=== PATIENT | male | born 1985 | race Caucasian/White ===

== ENCOUNTER 2016-09-22 19:35 | Inpatient (IN) | payer SELFPAY ==
[~2016-09-22] VITALS: Ht 180.3 cm; Wt 76.2 kg
[2016-09-22] MEDS ORDERED: PARO20TA24 PO (19:38)
[2016-09-22 20:10] LABS: BASOPHILS % (AUTO) 0.7 % (0.0-2.0); EOSINOPHILS % (AUTO) 0.5 % (1.0-6.0); HEMATOCRIT 47.8 % (41-53); HEMOGLOBIN 16.5 g/dL (13.5-17.5); LYMPHOCYTES # (AUTO) 1.7 K/uL (1.0-4.8); MEAN CORPUSCULAR HEMOGLOBIN 31.2 pg (26.0-34.0); MEAN CORPUSCULAR HGB CONC 34.5 G/dL (31.0-37.0); MEAN CORPUSCULAR VOLUME 90 fL (80-100); MONOCYTES # (AUTO) 0.5 K/uL (0.1-1.0); MONOCYTES % (AUTO) 5.3 % (2.0-9.0); NEUTROPHILS # (AUTO) 7.3 K/uL (1.8-7.7); NEUTROPHILS % (AUTO) 75.5 % (40.0-70.0); PLATELET COUNT (AUTO) 221 K/uL (150-450); RED BLOOD CELL COUNT(AUTO) 5.29 MIL/uL (4.50-5.90); RED CELL DISTRIBUTION WIDTH 12.9 % (11.5-14.5); WHITE BLOOD COUNT (AUTO) 9.7 K/uL (4.5-11.0)
[2016-09-22 20:35] LABS: ANION GAP 17 mmol/L (8-16); CALCIUM, TOTAL 8.9 mg/dL (8.8-10.5); CARBON DIOXIDE 22 mmol/L (22-29); CHLORIDE 105 mmol/L (98-107); CREATININE 0.88 mg/dL (0.60-1.30); GLOMERULAR FILTR. RATE CALC > 60 mL/min (>60); POTASSIUM 3.7 mmol/L (3.5-5.1); SODIUM SERUM 144 mmol/L (136-145); UREA NITROGEN, BLOOD 11 mg/dL (7-18)
[2016-09-22 20:43] LABS: ALANINE AMINOTRANSFERASE 38 U/L (12-78); ALBUMIN 4.5 g/dL (3.4-5.0); ASPARTATE AMINOTRANSFERASE 31 U/L (15-37); BILIRUBIN,TOTAL 0.4 mg/dL (0.1-1.0); TOTAL PROTEIN, SERUM 8.1 g/dL (6.4-8.2)
[2016-09-22] MEDS ORDERED: BUPIVACAINE HCL/PF 0.25% 30 ML VIAL INJ ONE (21:30)
[2016-09-22] MEDS ORDERED: PERTUSS(ACELL),DIPH,TET VAC/PF 0.5 ML VIAL IM ONE (21:30)
[2016-09-22] MEDS ORDERED: BACITRACIN 0.9 GM PACKET OINTMENT TP ONE (21:30)
[2016-09-22] MEDS ORDERED: HALOPERIDOL 5 MG TABLET PO PRN (21:30)
[2016-09-22] MEDS: ZOLPIDEM TARTRATE 10 MG TABLET PO PRN (21:37)
[2016-09-22] MEDS ORDERED: POVIDONE-IODINE 10% 15 ML SOLUTION UD TP ONE (22:30)
[2016-09-22] MEDS: LORazepam 2 MG TABLET PO PRN (23:29)
[2016-09-23 01:36] VITALS: BP 145/90
[2016-09-23] MEDS: LORazepam 2 MG TABLET PO PRN ×2 (06:50→15:33)
[2016-09-23 08:30] VITALS: BP 151/97
[2016-09-23] MEDS ORDERED: MAGNESIUM HYDROXIDE SUSPENSION 30 ML UDCUP PO PRN (08:30)
[2016-09-23] MEDS ORDERED: IBUPROFEN 600 MG TABLET PO PRN (08:30)
[2016-09-23] MEDS ORDERED: PETROLATUM,WHITE 71 GM JELLY TP PRN (08:30)
[2016-09-23] MEDS ORDERED: BENZOCAINE/MENTHOL LOZENGE MM PRN (08:30)
[2016-09-23] MEDS ORDERED: ONDANSETRON HCL 4 MG TABLET PO PRN (08:30)
[2016-09-23] MEDS ORDERED: ALBUTEROL SULFATE HFA 90 MCG/PUFF 8 GM INHALER IH PRN (08:30)
[2016-09-23] MEDS ORDERED: LOPERAMIDE HCL 2 MG CAPSULE PO PRN (08:30)
[2016-09-23] MEDS ORDERED: ACETAMINOPHEN 325 MG TABLET PO PRN (08:30)
[2016-09-23] MEDS ORDERED: MAG HYDROX/AL HYDROX/SIMETH ES 30 ML SUSPENSION UDCUP PO PRN (08:30)
[2016-09-23] MEDS ORDERED: CloNIDine HCL 0.1 MG TABLET PO PRN (08:30)
[2016-09-23] MEDS: PARoxetine HCL 20 MG TABLET PO SCH (09:48)
[2016-09-23] MEDS: FISH OIL/OMEGA-3 FATTY ACIDS 500 MG CAPSULE PO SCH (09:48)
[2016-09-23] MEDS: BACITRACIN 28.4 GM OINTMENT TP SCH ×2 (10:00→16:33)
[2016-09-23 19:34] VITALS: BP 136/91
[2016-09-23] MEDS: ZOLPIDEM TARTRATE 10 MG TABLET PO PRN (20:39)
[2016-09-23] MEDS: PRAZOSIN HCL 1 MG CAPSULE PO SCH (20:39)
[2016-09-24] MEDS: FISH OIL/OMEGA-3 FATTY ACIDS 500 MG CAPSULE PO SCH (08:26)
[2016-09-24] MEDS: LORazepam 2 MG TABLET PO PRN ×2 (08:26→16:16)
[2016-09-24] MEDS: PARoxetine HCL 20 MG TABLET PO SCH (08:27)
[2016-09-24] MEDS: BACITRACIN 28.4 GM OINTMENT TP SCH ×2 (08:27→16:16)
[2016-09-24 10:29] VITALS: BP 150/95
[2016-09-24] MEDS ORDERED: OMEG100033 PO (13:34)
[2016-09-24] MEDS ORDERED: PRAZ1 PO (13:34)
[2016-09-24 16:45] VITALS: BP 164/114
[2016-09-24 17:54] VITALS: BP 137/86
[2016-09-24] MEDS: PRAZOSIN HCL 1 MG CAPSULE PO SCH (20:05)
[2016-09-24] MEDS: ZOLPIDEM TARTRATE 10 MG TABLET PO PRN (21:05)
[2016-09-25 06:19] VITALS: BP 147/84
[2016-09-25] MEDS: PARoxetine HCL 20 MG TABLET PO SCH (08:46)
[2016-09-25] MEDS: FISH OIL/OMEGA-3 FATTY ACIDS 500 MG CAPSULE PO SCH (08:46)
[2016-09-25] MEDS: BACITRACIN 28.4 GM OINTMENT TP SCH (08:46)
== END 2016-09-25 14:00 | disposition home or self-care (01) | DRG 876 ==
LOC: EMS 19:36 → 3EC 23:15
PROC: 0XQ8XZZ Repair Right Upper Arm, External Approach (ICD-10-PCS; principal; 2016-09-22)
DX: F33.2 Major depressive disorder, recurrent severe without psychotic features (principal); R45.851 Suicidal ideations; F10.129 Alcohol abuse with intoxication, unspecified; S11.91XA Laceration without foreign body of unspecified part of neck, initial encounter; X78.9XXA Intentional self-harm by unspecified sharp object, initial encounter; S61.519A Laceration without foreign body of unspecified wrist, initial encounter; E78.5 Hyperlipidemia, unspecified; F12.90 Cannabis use, unspecified, uncomplicated; Y90.8 Blood alcohol level of 240 mg/100 ml or more; F43.12 Post-traumatic stress disorder, chronic; G47.00 Insomnia, unspecified; Z79.899 Other long term (current) drug therapy; Z71.41 Alcohol abuse counseling and surveillance of alcoholic; S51.812A Laceration without foreign body of left forearm, initial encounter; S51.811A Laceration without foreign body of right forearm, initial encounter; X78.8XXA Intentional self-harm by other sharp object, initial encounter; Y93.89 Activity, other specified; Y92.89 Other specified places as the place of occurrence of the external cause; Y99.8 Other external cause status
CPT/HCPCS: 12005; 90715; 99285; G0480; J3490